=== PATIENT | male | born 1950 | race Caucasian/White ===

== ENCOUNTER → 2020-06-21 | Outpatient (CLI) | payer MEDICARE ==
[~2020-06-21] MED LIST: COLACE100 MG PO; LISINOPRIL2.5 MG PO; NORCO 5-325 TA1 EACH PO; XARELTO10 MG PO
== END ==
LOC: MRI 13:41
PROVIDERS: ATTEND Family Medicine
DX: M54.12 Radiculopathy, cervical region (principal); R27.9 Unspecified lack of coordination
CPT/HCPCS: 70551; 72141

== ENCOUNTER 2020-07-08 06:33 | Observation (INO) | payer MEDICARE ==
[2020-07-05 14:55] LABS: BASOPHILS % 0.4 % (0.0-1.0); EOSINOPHILS # (AUTO) 0.1 (0.0-0.4); EOSINOPHILS % 1.9 % (0.0-6.0); HEMATOCRIT 44.5 % (38.2-49.6); LYMPHOCYTES # (AUTO) 1.6 (1.0-3.2); LYMPHOCYTES % 23.4 % (18.0-39.1); MEAN CORPUSCULAR HEMOGLOBIN 35.4 pg (28-32); MEAN CORPUSCULAR VOLUME 98.5 fL (81-99); MONOCYTES # (AUTO) 0.7 (0.2-0.8); MONOCYTES % 9.8 % (4.4-11.3); NEUTROPHILS # (AUTO) 4.4 (2.1-6.9); NEUTROPHILS % 64.4 % (38.7-80.0); PLATELET COUNT 178 x10e3/uL (140-360); RED BLOOD COUNT 4.52 x10e6/uL (4.3-5.7); RED CELL DISTRIBUTION WIDTH 11.5 % (11.7-14.4)
[2020-07-05 15:11] LABS: ANION GAP 16.5 mmol/L (8-16); BLOOD UREA NITROGEN 15 mg/dL (7-26); BUN/CREATININE RATIO 14 (6-25); CALCIUM 9.8 mg/dL (8.4-10.2); CARBON DIOXIDE 25 mmol/L (22-29); CHLORIDE 104 mmol/L (98-107); EST GLOMERULAR FILTRATION RATE > 60 ML/MIN (60-); GLUCOSE 107 mg/dL (74-118); POTASSIUM 5.5 mmol/L (3.5-5.1); SODIUM 140 mmol/L (136-145)
[2020-07-05 15:18] LABS: INR 0.87; PROTHROMBIN TIME 12.4 seconds (11.9-14.5)
[2020-07-05 15:19] LABS: PARTIAL THROMBOPLASTIN TIME 26.1 seconds (23.8-35.5)
[~2020-07-08] VITALS: Ht 160 cm; Wt 59.4 kg
[~2020-07-08 06:33] MED LIST changes: +ALENDRONATE SOD70 MG PO; +AMLODIPINE BESYL5 MG PO; +CALCIUM PO; +FAMOTIDINE20 MG PO; +LEVOCETIRIZINE D5 MG PO; +MONTELUKAST SOD10 MG PO
[2020-07-08] MEDS ORDERED: LIDOCAINE HCL (LTA) 4 ML SOLN ONE (06:36)
[2020-07-08] MEDS ORDERED: ACETAMINOPHEN 1000 MG/100 ML 100 ML IV ONE (06:36)
[2020-07-08] MEDS ORDERED: IBUPROFEN 800MG/ 200ML 200 ML IV ONE (06:37)
[2020-07-08] MEDS ORDERED: VANCOMYCIN HCL 1 GM VIAL ONE (06:57)
[2020-07-08] MEDS ORDERED: BUPIVACAINE 0.5%/EPI 30 ML SDV INJ ONE (06:58)
[2020-07-08] MEDS ORDERED: THROMBIN FOR SOLN 5,000 UNIT VIAL ONE (06:58)
[2020-07-08] MEDS ORDERED: CEFAZOLIN SOD 1 GM/NS 50ML 50 ML IV ONE (07:48)
[2020-07-08] MEDS ORDERED: HYDROCODON-ACE1 EA12 PO (09:50)
[2020-07-08] MEDS ORDERED: HYDROMORPHONE 2MG/ML 2 MG/ML ML IV PRN (10:00)
[2020-07-08] MEDS ORDERED: PROMETHAZINE HCL (IM) 25 MG/ML VIAL IM PRN (10:00)
[2020-07-08] MEDS ORDERED: MAGNESIUM/ALUMINUM/SIMETHICONE 30 ML UDC PO PRN (10:00)
[2020-07-08] MEDS ORDERED: ONDANSETRON HCL INJ 2MG/ML 2ML 2 MG/ML VIAL IV PRN (10:00)
[2020-07-08] MEDS ORDERED: MORPHINE SULFATE 5 MG/ML VIAL IM PRN (10:00)
[2020-07-08] MEDS ORDERED: ACETAMINOPHEN 325 MG TAB PO PRN (10:00)
[2020-07-08] MEDS ORDERED: FENTANYL CITRATE/PF 100MCG/2 ML INJ ONE (10:34)
[2020-07-08 14:03] LABS: ANION GAP 14.9 mmol/L (8-16); BLOOD UREA NITROGEN 13 mg/dL (7-26); BUN/CREATININE RATIO 11 (6-25); CALCIUM 9.1 mg/dL (8.4-10.2); CARBON DIOXIDE 27 mmol/L (22-29); CHLORIDE 103 mmol/L (98-107); CREATININE, SERUM 1.15 mg/dL (0.72-1.25); EST GLOMERULAR FILTRATION RATE > 60 ML/MIN (60-); GLUCOSE 232 mg/dL (74-118); POTASSIUM 4.9 mmol/L (3.5-5.1); SODIUM 140 mmol/L (136-145)
[2020-07-08 14:17] VITALS: BP 153/94
[2020-07-08 14:24] VITALS: BP 153/94
[2020-07-08 16:10] VITALS: BP 114/84
[2020-07-08] MEDS: FAMOTIDINE 20 MG TAB PO SCH (17:00)
[2020-07-08] MEDS: CEFAZOLIN SOD 1 GM/NS 50ML 50 ML IV SCH (17:00)
[2020-07-08 20:00] VITALS: BP 114/84
[2020-07-08] MEDS: LACTATED RINGER'S 1,000 ML IV SCH ×2 (20:16→20:18)
[2020-07-08] MEDS: OXYCODONE/ACETAMINOPHEN 5-325 1 EACH TABLET PO PRN (20:17)
[2020-07-08 20:43] VITALS: BP 131/85
[2020-07-08] MEDS ORDERED: AMLODIPINE BESYLATE 5 MG TAB PO SCH (21:00)
[2020-07-08] MEDS ORDERED: ZOLPIDEM TARTRATE 5 MG TAB PO PRN (21:00)
[2020-07-08] MEDS: CARISOPRODOL 350 MG TAB PO PRN (23:56)
[2020-07-09] VITALS: BP 125/82
[2020-07-09] MEDS: CEFAZOLIN SOD 1 GM/NS 50ML 50 ML IV SCH ×2 (00:14→09:00)
[2020-07-09] MEDS: LACTATED RINGER'S 1,000 ML IV SCH ×2 (03:59→11:00)
[2020-07-09] MEDS: OXYCODONE/ACETAMINOPHEN 5-325 1 EACH TABLET PO PRN ×2 (04:00→10:00)
[2020-07-09 04:41] VITALS: BP 125/81
[2020-07-09] MEDS: FAMOTIDINE 20 MG TAB PO SCH (07:30)
[2020-07-09 07:49] VITALS: BP 146/78
[2020-07-09] MEDS ORDERED: NON-FORMULARY MEDICATION (Levocetirizine Dihydrochloride 5 MG) PO SCH (09:00)
[2020-07-09] MEDS ORDERED: CALCIUM CARBONATE 500 MG CHEWABLE TABS PO SCH (09:00)
[2020-07-09] MEDS ORDERED: LORATADINE 10 MG TAB PO SCH (09:00)
[2020-07-09] MEDS ORDERED: CALCIUM 600 MG PO SCH (09:00)
[2020-07-09] MEDS ORDERED: MONTELUKAST SODIUM 10 MG TAB PO SCH (09:00)
[2020-07-09 09:26] VITALS: BP 146/78
[2020-07-09] MEDS: CARISOPRODOL 350 MG TAB PO PRN (10:00)
[2020-07-09] MEDS ORDERED: CEPACOL SORE THROAT LOZENGES PO PRN (10:15)
== END 2020-07-09 12:10 | disposition home or self-care (01) ==
LOC: OR 06:33 → PACU V 09:49 → MED/SURG 14:00
PROVIDERS: ADMIT Neurological Surgery; ATTEND Neurological Surgery
DX: M50.11 Cervical disc disorder with radiculopathy, high cervical region (principal); I10 Essential (primary) hypertension; Z20.822 Contact with and (suspected) exposure to COVID-19; M19.90 Unspecified osteoarthritis, unspecified site
CPT/HCPCS: 20931; 22551; 22845; 36415 ×2; 71046; 72040; 77003; 80048 ×2; 85025; 85610; 85730; 86850; 86900; 88304; 88311; 93005; C1713 ×2; G0378 ×2; J0131; J0690 ×2; J1170; J3010; J3370; J7121 ×2; U0002

== ENCOUNTER → 2020-07-30 | Outpatient (CLI) | payer MEDICARE ==
[~2020-07-30] MED LIST changes: +HYDROCODON-ACE1 EA12 PO
== END ==
LOC: US 08:37
PROVIDERS: ATTEND Family Medicine
DX: R94.5 Abnormal results of liver function studies (principal)
CPT/HCPCS: 76705

== ENCOUNTER → 2020-08-09 | Outpatient (CLI) | payer MEDICARE | LOC: RAD 09:57 | PROVIDERS: ATTEND Neurological Surgery | DX: M50.20 Other cervical disc displacement, unspecified cervical region (principal); M43.22 Fusion of spine, cervical region | CPT/HCPCS: 72050 ==

== ENCOUNTER → 2020-10-15 | Outpatient (CLI) | payer MEDICARE | LOC: MRI 10:43 | PROVIDERS: ATTEND Family Medicine | DX: M51.17 Intervertebral disc disorders with radiculopathy, lumbosacral region (principal); M48.07 Spinal stenosis, lumbosacral region; M51.36 Other intervertebral disc degeneration, lumbar region | CPT/HCPCS: 72148 ==

== ENCOUNTER → 2021-02-07 | Outpatient (CLI) | payer MEDICARE | LOC: RAD 11:00 | PROVIDERS: ATTEND Neurological Surgery | DX: M50.20 Other cervical disc displacement, unspecified cervical region (principal); M43.22 Fusion of spine, cervical region | CPT/HCPCS: 72050 ==

== ENCOUNTER → 2021-09-08 | Outpatient (CLI) | payer MEDICARE ==
[~2021-09-08] MED LIST changes: +IOPAMIDOL 370 MG/ML 100 ML INFUS..BTL INJ ONE; +SODIUM CHLORIDE 0.9% 100 ML ONE
[2021-09-08 12:58] LABS: CREATININE, SERUM 0.9 mg/dL (0.72-1.25)
== END ==
LOC: CT 11:46
PROVIDERS: ATTEND Internal Medicine Cardiovascular Disease
DX: I71.2 Thoracic aortic aneurysm, without rupture (principal)
CPT/HCPCS: 36415; 71275; 82565; 84520; J7050; Q9967

== ENCOUNTER → 2022-05-04 | Outpatient (CLI) | payer MEDICARE ==
[~2022-05-04] MED LIST changes: -IOPAMIDOL 370 MG/ML 100 ML INFUS..BTL INJ ONE; -SODIUM CHLORIDE 0.9% 100 ML ONE
== END ==
LOC: MRI 12:38
PROVIDERS: ATTEND Family Medicine
DX: M54.2 Cervicalgia (principal); M54.14 Radiculopathy, thoracic region
CPT/HCPCS: 72141; 72146